=== PATIENT | female | born 1925 | race Caucasian/White ===

== ENCOUNTER → 2017-04-21 | Emergency (ER) | payer MEDICARE, OTHER ==
[~2017-04-21] VITALS: Ht 152.4 cm; Wt 77.1 kg
[~2017-04-21] MED LIST: ACETAMINOPHEN-1 EAC1 PO; AMLODIPINE BESY10 MG PO; AMOX TR-K CLV1 EAC1 PO; COUMADIN3 MG PO; DOCUSATE SODIU100 MG PO; HYDROCHLOROTH12.5 MG PO; ICAPS AREDS FO1 EACH PO; LISINOPRIL20 MG PO; LOVASTATIN20 MG PO; MULTIVITAMINS1 EAC7 PO; NORCO 5-325 TA1 EACH PO; PERCOCET 7.5-31 EACH PO; SENNA LAX8.6 MG PO; ULTRAM50 MG PO; VITAMIN C WIT1000 MG PO; VITAMIN D32000 UNI1 PO; ZOFRAN ODT4 MG PO
== END ==
LOC: ED 16:15
PROC: 2W3CX1Z Immobilization of Right Lower Arm using Splint (ICD-10-PCS; principal; 2017-04-21)
DX: S52.131A Displaced fracture of neck of right radius, initial encounter for closed fracture (principal); S52.001A Unspecified fracture of upper end of right ulna, initial encounter for closed fracture; Z87.891 Personal history of nicotine dependence; Z88.5 Allergy status to narcotic agent; Z79.899 Other long term (current) drug therapy; W19.XXXA Unspecified fall, initial encounter
CPT/HCPCS: 29125; 73080; 99283

== ENCOUNTER 2017-04-26 09:50 | Day surgery (SDC) | payer MEDICARE, OTHER ==
[~2017-04-26] VITALS: Ht 152.4 cm; Wt 72.6 kg
[~2017-04-26 09:50] MED LIST changes: -ACETAMINOPHEN-1 EAC1 PO; -AMOX TR-K CLV1 EAC1 PO; -COUMADIN3 MG PO; -SENNA LAX8.6 MG PO; -ULTRAM50 MG PO
[2017-04-26] MEDS ORDERED: ULTRAM50 MG PO (10:17)
--- NOTE | 2017-04-26 11:11 | NUR ---
C/O NAUSEA. NEW ORDERS RECEIVED.
--- NOTE | 2017-04-26 13:40 | NUR ---
04/26/17 6356 Albaro Zurita SHOWER ATTENDANT AT BEDSIDE ORDERING 12 LEAD AND ASKING FOR NON REBREATHER ON ENTRY TO PACU. BOTH DONE. REPORT RECIEVED. PT REPORTS MILD RIGHT ARM PAIN. NO SURGERY OR ANESTHETIC GIVEN APART FROM THE INTERSCALINE BLOCK DONE IN DS.
--- NOTE | 2017-04-26 13:48 | NUR ---
LE 1020 PT'S OXYGEN SATS 75% ON R HAND. SWITCHED PULSE OX TO L HAND AND SATS INCREASED TO 83%. ENCOURAGED PT TO DEEP BREATH AND BROUGHT SATS UP TO 92% ON RA. TALKED WITH PT AND FAMILY TO CONTINUE DEEP BREATHING.
--- NOTE | 2017-04-26 22:52 | EKG ---
[facility] [address] [place] [address] Signed Sinus tachycardia with premature atrial complexes Left axis deviation Anterior infarct , age undetermined Abnormal ECG No previous ECGs available Confirmed by WALDEMAR MOY MD ([id number]) on 04/26/2017 10:52:33 PM Electronically Signed By: WALDEMAR MOY MD 04/26/17 2252 PATIENT NAME: CLAUDIA LOBATO Electrocardiogram DATE OF : [birth year] PHYSICIAN: WALDEMAR MOY MD REPORT #: [id number] REPORT IS CONFIDENTIAL AND NOT TO BE RELEASED WITHOUT AUTHORIZATION
== END 2017-04-26 14:55 | disposition home or self-care (01) ==
LOC: DS 09:50 → OPS 09:50
PROC: 0PSH04Z Reposition Right Radius with Internal Fixation Device, Open Approach (ICD-10-PCS; principal; 2017-04-26)
PROC: 0PSK04Z Reposition Right Ulna with Internal Fixation Device, Open Approach (ICD-10-PCS; 2017-04-26)
DX: S52.121A Displaced fracture of head of right radius, initial encounter for closed fracture (principal); S52.001A Unspecified fracture of upper end of right ulna, initial encounter for closed fracture; W01.0XXA Fall on same level from slipping, tripping and stumbling without subsequent striking against object, initial encounter; I10 Essential (primary) hypertension; Z85.9 Personal history of malignant neoplasm, unspecified; Z88.8 Allergy status to other drugs, medicaments and biological substances; Z53.9 Procedure and treatment not carried out, unspecified reason
CPT/HCPCS: 64415; 71010; 76942; 93005; 93010; J0735; J2405; J2704; J2795; J7120

== ENCOUNTER 2017-04-26 15:04 | Inpatient (IN) | payer MEDICARE, OTHER ==
[~2017-04-26] VITALS: Ht 152.4 cm; Wt 73.5 kg
[~2017-04-26 15:04] MED LIST changes: +ULTRAM50 MG PO
--- NOTE | 2017-04-26 20:00 | NUR ---
PATIENT ATE HALF A TURKEY SANDWICH, A CUP OF APPLE SAUCE , AND A GLASS OF MILK AND THEN PUT HER CPAP ON BUT SHE DOES NOT LIKE WEARING THE CPAP.
--- NOTE | 2017-04-26 20:30 | NUR ---
PT ARRIVED WITH NURSE BOILER TENDERS SUPERVISOR FROM ER. PATIENT MOVED TO BED IN ROOM 130 AD HOOKED UP TO MOITORS AND ASKED FOR FOOD. SMALL SANDWHICH MEAL AND APPLE SAUCE AND MILK AND THEN PLACED ON CPAP BY RT. FAMILY AT HE BEDSIDE. IV'S PATENT, ASESSMENT COMPLETE.
--- NOTE | 2017-04-26 21:50 | NUR ---
PATIENT WAS BROUGHT UP FROM THE ER AN WAS VERY HUNGRY. SHE ATE 1/3 A TURKEY SANDWICH SO APPLE SAUCE, GRANOLA BAR AND A GLAS OF MILK AND THE WENT O CPAP TO [facility] HER O2 SATS UP.
--- NOTE | 2017-04-26 22:40 | NUR ---
5400 PATIENT WAS GIVEN 500MG OF TYLENOL FOR 5/10 RIGHT ARM PAIN.
--- NOTE | 2017-04-26 23:00 | NUR ---
PT CONFUSED AND PULLING AT TUBES AND REMOVING CPAP MACHINE. UNABLE TO REORIENT PT WITH MULTIPLE ATTEMPTS. MD IN ROOM AND ORDERED A RESTRAINT TO BE PLACED ON L WRIST.
--- NOTE | 2017-04-27 | NUR ---
PATIENT STILL VERY RESTLESS AND PULLING AT HER CPAP AND VS CORDS MAY HAVE TO CA DR. MOY SOON.
--- NOTE | 2017-04-27 00:45 | NUR ---
HAD TO CALL DR. MOY PATIENT HAS BECOME MORE WOUND UP. ORDERED 1 MG HALDOL TO HELP HER REST.
--- NOTE | 2017-04-27 01:15 | NUR ---
1MG IV HALDOL WAS GIVEN AND PATIENT'S AGGITATION HAS BECAOME WORSE. SHE HAS PULED OUT HER LEFT WRIST IV. ONCE THAT IS CLEANED UP I WILL YULY DR. MOY AGAIN.
--- NOTE | 2017-04-27 02:30 | NUR ---
md was updated about continued restlessness after haldol. md ordered seroquel. went to administer medication and pt was finally resting well and not pulling at cpap. will continue to monitor pt for restlessness.
--- NOTE | 2017-04-27 05:11 | NUR ---
JUST CALLED TO LET HIM KNOW PATIENT'S URINE OUTPUT HAD DROPPED OFF OVER THE LST COUPLE HOURS AND A 500CC BOLUS WAS STARTED TO RUN OVER AN HOUR OF D5LR.
--- NOTE | 2017-04-27 08:55 | NUR ---
IV SITE COMPLETELY WRAPPED IN COBAN. COBAN REMOVED, IV SITE INTACT, FLUIDS INFUSING EASILY, SKIN IS SLIGHTLY BRUISED AT INSIRTION SITE.
--- NOTE | 2017-04-27 10:26 | NUR ---
PT UP TO BEDSIDE COMMODE, UNABLE TO HAVE BM. PT LINENS AND GOWN CHANGED, SKIN CARE DONE. PT ASSISTED BACK TO BED. PT IS A ONE PERSON ASSIST UP TO THE COMMODE AND BACK TO BED.
--- NOTE | 2017-04-27 10:37 | NUR ---
PT ON CPAP.
--- NOTE | 2017-04-27 11:52 | NUR ---
PT OFF CPAP AND ON 6L NC.
--- NOTE | 2017-04-27 12:32 | NUR ---
PT IV SITE INTACT, NO REDNESS OR SWELLING NOTED, FLUIDS INFUSING EASILY. PT DENIES PAIN AT IV SITE. PT REPOSITIONED IN BED FOR COMFORT WITH PILLOWS FOR SUPPORT UNDER BOTH ARMS. PT ABLE TO EAT MORE THAN 50% OF LUNCH. FAMILY AT THE BEDSIDE. PT DENIES NAUSEA, AND SOB AT THIS TIME.
--- NOTE | 2017-04-27 12:40 | NUR ---
PT BACK ON CPAP.
--- NOTE | 2017-04-27 15:40 | NUR ---
PT OFF CPAP, PT UP TO THE COMMODE WITH TWO PERSON ASSIST. PT UNABLE TO HAVE BM, THEN BACK TO BED WITH TWO PERSON ASSIST.
--- NOTE | 2017-04-27 18:36 | NUR ---
PT GIVEN PO MAG-CITRATE 150 MG, AND DULCOLAX SUPPOSITORY. CHUCKS PLACED UNDER THE PT.
--- NOTE | 2017-04-27 19:30 | NUR ---
PT SHIFT REPORT RECIVED FROM DAY SHIFT RN. PT FAMILY LEAVING AT THIS TIME. PT UP TO BEDSIDE CAMMODE WITH ASSISTANCE. WILL CONTINUE TO CLOSELY MONITOR.
--- NOTE | 2017-04-27 20:00 | NUR ---
ASSISTED PT BACK TO BED PT TOLERATED WELL. OTHER RN IN TO STAART NEW IV ON PT. ASSESSMENT COMPLETED. PT ABD DISTENDED BOWEL TONES ACTIVE. PT RECIVED MEDICATION ON DAY SHIFT TO HELP PT HAVE A BM. PT UNABLE TO HAVE A BM STILL. WILL CONTINUE TO CLOSELY MONITOR. LUNGS CLEAR AND DIMINISHED IN BASES. WILL TRY AND ENCOURAGE CPAP MACHINE TONIGHT.
--- NOTE | 2017-04-27 21:30 | NUR ---
RT IN TO PLACE CPAP ON PT. EDUCATED PT REGURDING ITS USE AND THE IMPORTANCE OF USING IT THROUGHOUT THE NIGHT. PT IS AGREEABLE TO PLAN.
--- NOTE | 2017-04-27 21:50 | NUR ---
PT YELLING OUT. ENTERED ROOM AND PT STATED "WHAT IS THIS ON MY MOUTH, ITS COVERING MY MOUTH". PT IS REFERING TO THE CPAP MACHINE. REORIENTED PT TO EQUIPMENT AND ITS PURPOSE. PT IS AGREEABLE TO WEARING IT.
--- NOTE | 2017-04-27 21:57 | NUR ---
PT RESTING IN BED. MOVED PT FROM 130 TO 128 D/T INTERMITENT CONFUSION, HX DEMENTIA, AND RECENT FALL AT HOME. PT BED ALARM ON AT THIS TIME. WILL CONTINUE TO CLOSELY MONITOR.
--- NOTE | 2017-04-27 22:15 | NUR ---
PT YELLING OUT AGAIN. REOEIRNTED TO EQUIPMENT AND SITUATION. WILL COTNINUE TO MONITOR.
--- NOTE | 2017-04-27 22:35 | NUR ---
PT YEKLLING OUT AGAIN. REMOVED MASK TO GIVE PT A BREAK AND TAKE MEDICATION. PLACED NC ON PATIENT AT 6L NC. WILL CONTINUE TO MONITOR AND READRESS CPAP MACHINE AT ANOTHER TIME.
--- NOTE | 2017-04-27 23:00 | NUR ---
PT YELLING OUT AGAIN. UNSURE WHERE SHE IS AND STATES "ISNT MEGAN HERE" "WHERE ARE MY KIDS". REORIENTED PT HER FAMILY IS MOST LIKELY HOME SLEEPING BECAUSE IT IS THE MIDDLE OF THE NIGHT. PT PULLING ON CORDS. REEDUCATED NOT TO PULL ON TUBES OR CORDS. REDUCATED PT REGUARDING THEIR PURPOSE. GAVE PT PRN SEROQUEL FOR AGITATION/RESTLESSNESS. BED ALARM ON. CALL LIGHT IN HAND. WILL CONTINUE TO CLOSELY MONITOR.
--- NOTE | 2017-04-28 00:15 | NUR ---
PT DOES NOT WANT CPAP ON AT THIS TIME. PT STATES "IT PANICS ME". EDUCATED ON EQUIPMENTS PURPOSE, BUT PT DOES NOT WANT TO USE IT AT THIS TIME. WILL CONTINUE TO MONITOR.
--- NOTE | 2017-04-28 01:00 | NUR ---
PT RESTING WELL AT THIS TIME. BYNUM CHECKED PT HAS GOOD URINE OUTPUT. PT REMAINS ON NC AT THIS TIME D/T DENIAL OF CPAP MACHINE. WILL CONTINUE TO MONITOR.
--- NOTE | 2017-04-28 03:00 | NUR ---
PT RESTING IN BED. PT STILL WITHOUT A BOWL MOVEMENT WITH RECIVING MEDICATION PRIOR IN THE NIGHT. CALL LIGHT IN HAND. BED IN LOWEST POSITION. BED ALARM ON. WILL CONTINUE TO CLOSELY MONITOR.
--- NOTE | 2017-04-28 05:20 | NUR ---
PT RESTING IN BED. LAB IN FOR MORNIGN LABS. PT IS AGREEABLE TO WEARING CPAP AT THIS TIME. WILL CONTINUE TO REORIENT AND EDUCATED REGURDING MEDICAL EQUIPMENT AND SITUATION NEEDED.
--- NOTE | 2017-04-28 06:13 | NUR ---
PT AGREEABLE TO TRYING CPAP AGAIN. PLACED PT ON CPAP AT THIS TIME. WILL CONTINUE TO MONITOR AND REORIENT NEEDED.
--- NOTE | 2017-04-28 06:16 | NUR ---
IN TO DO I/O. CHECKED PT TO SEE IF ANY INCONTINENT BM. ODOR NOTED. TURNED PT AND CLEANED PT. NEW JUSTYNA PADS PLACED. PT HAD MEDIUM LOOSE BROWN STOOL. WILL CONTINUE TO MONITOR.
--- NOTE | 2017-04-28 08:20 | NUR ---
REPORT RECEIVED FROM MERCEDES ARAYA. PATIENT RESTING UPON INITIAL ASSESSMENT IN BED. PT EASILY AWAKENS TO VOICE. PT'S SON BROOKLYN IN ROOM AND ATTENTIVE TO PATIENT. PATIENT DOES NOT APPEAR SHORT OF BREATH AND DENIES FEELING SHORT OF BREATH. PT IS CURRENTLY ON 5 L NC AND HAS SP02 OF 96%. PT WILL BE ATTEMPTED TO WEAN DOWN O2 TOLERATED. PATIENT HAVE D5 LR INFUSING AT 100 ML/HR INTO A 20 G ON LEFT WRIST. PT NOW EATING FRESH FRUIT, APPLE SAUCE AND HOT COCOA. WARM BLANKET GIVEN TO PATIENT. PT HAS BYNUM CATHETER DRAINING CLEAR YELLOW URINE. PULSES HARD TO PALPATE IN FEET AND DOPPLER USED. PT DENIES FURTHER NEEDS AT THIS TIME. CONTINUE TO MONITOR CLOSELY.
--- NOTE | 2017-04-28 09:00 | NUR ---
OXYGEN TITRATED DOWN TO 3 L AT THIS TIME. PATIENT UP IN CHAIR AFTER SITTING ON BEDSIDE COMMODE AND HAVING A BM. PATIENT HAVING LIQUID STOOL, BUT THEN STATES THAT SHE "FEELS SOMETHING DOWN THERE STILL." PALPABLE HARD STOOL FELT AT RECTUM OPENING AND EASILY ABLE TO HELP PATIENT REMOVE THIS HARD STOOL. PATIENT WANTING TO GO BACK INTO BED BUT ENCOURAGED TO SIT UP IN CHAIR FOR AT LEAST AN HOUR THIS AM. PT GIVEN TYLENOL FOR PAIN. PT'S RIGHT ARM POSITIONED WITH PILLOW. PT'S SON BROOKLYN BACK IN ROOM NOW AT THIS TIME. CORE TEMP ON BYNUM CATHETER 100.0. CONTINUE TO MONITOR. CALL LIGHT WITHIN REACH.
--- NOTE | 2017-04-28 10:14 | NUR ---
DR. MOY IN ROOM EVALUATING PATIENT. PATIENT CONTINUES TO SIT IN CHAIR AT THIS TIME AND HAS BEEN DOZING OFF THIS AM WITH HER SON SITTING NEXT TO HER. ORDER REC'D TO D/C BYNUM, INCREASE USE OF IS, AND INCREASE ACTIVITY TOLERATED. I/O COMPLETE AT THIS TIME. PATIENT ALSO GOING TO TRANSFER TO MEDICAL FLOOR TODAY. PATIENT'S 02 CURRENTLY AT 95% ON 3L, PATIENT TURNED DOWN TO 2 L. WILL CONTINUE TO MONITOR.
--- NOTE | 2017-04-28 11:38 | NUR ---
PATIENT CONTINUES TO REST IN CHAIR AT THIS TIME. PT OFF MONITOR. ASSESSMENT AND VITALS COMPLETE. K PHOS INFUSING NOW AT 63 ML/HR. PATIENT TO BE SALINE LOCKED AFTER THIS INFUSION. PT REMAINS ON 2 L NC AND IS TOLERATING THIS WELL WITH AN SP02 OF 92% CURRENTLY. CONTINUE TO MONITOR.
--- NOTE | 2017-04-28 12:00 | NUR ---
HANDOFF REPORT RECEIVED FROM CCU RN JUAN VIA TELEPHONE.
--- NOTE | 2017-04-28 12:18 | NUR ---
REPORT GIVEN TO MERCEDES JARA ON MED SURG. PATIENT TO BE TRANSFERRED TO MED/SURG IN CHAIR.
--- NOTE | 2017-04-28 12:40 | NUR ---
PT ARRIVED TO FLOOR VIA CHAIR. ORIENTED TO ROOM AND CALL LIGHT. FRESH JUICE GIVEN. DENIED FURTHER NEEDS. CALL LIGHT WITHIN REACH.
--- NOTE | 2017-04-28 13:00 | NUR ---
GAVE PT 650MG TYLENOL PO FOR PAIN IN RIGHT ARM.
--- NOTE | 2017-04-28 13:20 | NUR ---
PT ASSESSMENT COMPLETE. PT SPO2 93% ON SL NC. PT UP IN CHAIR. CRACKLES NOTED BILATERALLY IN LUNG BASES. ASSISTED PT WITH FIRE PREVENTION SPECIALIST TO TRANSFER TO BEDSIDE COMMODE. PT LYNETTE WELL, NOT STEADY ON FEET. PT HAD SMALL FORMED BM, VOID. IVF INFUSING WNL. PT STATES PAIN IS 4/10 IN RIGHT ARM, PRN TYLENOL WAS ADMINISTERED TO PT. RIGHT ARM IN ORTHO GLASS AND WRAPPED IN TUSHAR BANDAGE. PT GIVEN CALL LIGHT, NO ADDITIONAL REQUESTS AT THIS TIME. SON BROOKLYN IN ROOM.
--- NOTE | 2017-04-28 15:15 | NUR ---
REASSESSED PT'S PAIN. PT SITTING IN CHAIR, RATES PAIN IN RIGHT WRIST 5/10. DR. MOY NOTIFIED THAT TYLENOL IS NOT MANAGING PAIN EFFECTIVELY, FAMILY REQUESTING ADDITIONAL PAIN MEDICATION. PT GIVEN WARM BLANKET. COFFEE BROUGHT TO VISITORS. RIGHT ARM IS ELEVATED ON PILLOW. IVF INFUSING. SPO2 91% ON 2L NC. PT HAS CALL LIGHT.
--- NOTE | 2017-04-28 15:51 | NUR ---
PHYSICAL THERAPY IN ROOM WORKING WITH PT. RECOMMENDATION FOR CANE AND SBA. PT BACK TO BED, SCD'S IN PLACE. PT RIGHT ARM ELEVATED ON PILLOW. PT HAS CALL LIGHT.
--- NOTE | 2017-04-28 16:42 | NUR ---
PT IN BED TOOK HER TO THE BATHROOM.
--- NOTE | 2017-04-28 18:30 | NUR ---
ASSISTED PT TO COMMODE WITH SBA, PT HAD FORMED, SOFT BM WITH UNMEASURED VOID. PT LYNETTE WELL, NOT STEADY ON FEET. PT ATTENDS CHANGED. PT BACK TO BED 92% ON 2L NC. PT COMPLAINS OF 5/10 PAIN IN RIGHT ARM, ADMINISTERED 650 MG ACETAMINOPHEN PRN. SCDS IN PLACE. IV ANTIBIOTIC COMPLETE AT THIS TIME, IV SALINE LOCKED, WNL. PT'S LUNGS DIMINISHED IN BASES BILATERALLY, CRACKLES NOTED IN LEFT LOWER LOBE. PT HAS NO ADDITIONAL REQUESTS, CALL LIGHT GIVEN TO PT.
--- NOTE | 2017-04-28 18:41 | NUR ---
PT CONFUSED, REPEATING SELF AND ASKING ABOUT WATCH ON WRIST THAT IS NOT THERE. WHEN ASKED ABOUT TIME DATE LOCATION, ANSWERED ALL QUESTIONS CORRECTLY.
--- NOTE | 2017-04-28 19:28 | NUR ---
PT AMBULATED TO BED SIDE COMMODE WITH ASSITANCE. REQUIRED ASSISTANCE CLEANING SELF. RETURNED TO BED WITH SCD'S ON, O2 CONTINIOUS AT 2L NC. RIGHT ARM IN SLING WITH PILLOW ELEVATING. 5/10 PAIN FOR SITE AND GIVEN PO TYLENOL.
--- NOTE | 2017-04-28 20:00 | NUR ---
RECEIVED REPORT AT 1900. FOUND PT IN BED TALKING WITH FAMILY AT BEDSIDE. PT WAS COMPLAINING OF PAIN IN HER RIGHT WRIST. MD MOY WAS AT RN STATION WRITING A NEW ORDER FOR PRN PAIN MEDICATION. I TOLD HER I WOULD BRING HER PRN PAIN MEDICATION PEGGY.
--- NOTE | 2017-04-28 21:27 | NUR ---
ROUNDED ON PATIENT CHARGE. ALL QUESTIONS ANSWERED. NO CONCERNS OR COMPLAINTS AT THIS TIME. CALL LIGHT IN REACH.
--- NOTE | 2017-04-28 22:00 | NUR ---
V/S ARE WDL, PAIN IS WELL CONTROLLED WITH PRN PAIN MEDS AVAILABLE. ALL HER RIGHT LOBES ARE COARSE AND SO IS HER LLL. MYNOR IS DIMINISHED. SPUTUM SAMPLE IS STILL NEEDED, HOWEVER PT IS VERY FORGETFUL AND I HAD TO REMIND HER ABOUT X4 WHAT THE SPUTUM CUP WAS FOR. PT HAS HX OF DEMENTIA. NO PERIPHERAL EDEMA NOTED, ALL ABD QUADRANTS HAVE ACTIVE BOWEL TONES.
--- NOTE | 2017-04-29 00:45 | NUR ---
PT IS AWAKE IN BED EATING JELLO. PT IS CONFUSED ABOUT CURRENT TIME AND KEEPS ASKING WHAT TIME IT IS. PT IS TRYING TO SLEEP AT THIS TIME.
--- NOTE | 2017-04-29 02:55 | NUR ---
PT IS STILL AWAKE IN BED, ANOTHER TYLENOL#3 WAS GIVEN. LAUNDRY OPERATOR WASH ROOM AND I ASSISTED PT TO BSC, PT VOIDED AND HAD A BM. BROUGHT PT A HOT CHOCOLATE. PT NOW IS BACK IN BED RESTING
--- NOTE | 2017-04-29 03:45 | NUR ---
CHECKED ON PT AGAIN. PT COMPLAINED ABOUT TUSHAR WRAP BEING TOO TIGHT. EDEMA IN RIGHT ARM IS ABOUT +3 NON-PITTING AND TUSHAR WRAP WAS CUTTING INTO HER SKIN. TUSHAR WRAP WAS REMOVED AND RE-APPLIED. BRACHIAL PULSE IS +2, FINGERS ARE WARM TO TOUCH. ICE PACK WAS PUT ON RIGHT ARM. I WILL CONTINUE TO MONITOR.
--- NOTE | 2017-04-29 06:22 | NUR ---
PT SEEMS WELL CONTROLLES WITH PRN PAIN MEDS AVAILABLE, V/S ARE WDL, TUSHAR WRAP ON RIGHT ARM WAS CUTTING INTO PT ARM. I RE-WRAPPED HER ARM THIS MORNING. PT OVERALL IS STILL VERY WEAK BUT IS IN GOOD SPIRITS, DURING FIRST ASSESSMENT, THE ONLY CLEAR LOBE WAS THE MYNOR. ALL OTHER LOBES HAD CRACKLES. DURING SECOND ASSESSMENT ALL LOBES WERE CLEAR BUT DIMINISHED. PT MAY NOT HAVE TAKEN VERY DEEP BREATHS. RIGHT ARM EDEMA IS +3, FINGERS ARE WARM TO TOUCH AND BRACHIAL PULSE IS +2. PT IS VERY FORGETFUL OVERALL. SPUTUM WAS COLLECTED AND SENT TO LAB.
--- NOTE | 2017-04-29 08:00 | NUR ---
PT WAS ON COMMODE CALLED B/C SHE WAS DONE. PT WAS THEN TRANSFERED TO THE CHAIR VIA [address] [place] [address] ASSIST. PT'S HANDS AND FACE WERE CLEAND WITH A WARM WASH CLOTH PT NEEDED HELP DUE TO HER INJURED ARM. LINENS WERE CHANGED.
--- NOTE | 2017-04-29 09:06 | NUR ---
WAREHOUSE PICKER JING WILL BE HANDLING ALL PT CARE FROM NOW UNTIL 1300. I WILL STILL CHECK ON PT Q2
--- NOTE | 2017-04-29 09:45 | NUR ---
TALKED WITH PT SON BROOKLYN, HE STATED THAT HE WOULD LIKE ME TO MEET WITH HIM AND HIS AFTER SHE GETS OFF WORK TO TALK ABOUT HIS MOTHER GOING TO [facility] THAN [place]. TOLD HIM I WOULD GLADLY MEET WITH TOLD HIM TO JUST TO LET THE NURSES KNOW AND I WILL COME VISIT WITH THEM.
--- NOTE | 2017-04-29 10:00 | NUR ---
PATIENT UP TO BATHROOM, APPEARS STEADY ON FEET, AMBULATING INTO BATHROOM. PAIN WELL CONTROLLED.
--- NOTE | 2017-04-29 10:28 | NUR ---
PT WALKED WITH PHYSICAL THERAPY FROM ROOM TO HALLWAY. RESTED IN WHEELCHAIR PENITENTIARY. C/O LIGHTHEADEDNESS AND DIZZINESS. O2 95% IN WHEELCHAIR. WALKED FROM WHEELCHAIR BACK TO ROOM AND RETURNED TO BED, LAYING SUPINE. SCD'S RESTARTED. O2 CONTINUED 2L. RIGHT ARM PAIN 6/10. GIVEN ICE PACK AND ELEVATED ARM.
--- NOTE | 2017-04-29 10:38 | NUR ---
PT LEGS DRY AND FLAKY SKIN. REMOVED SCD'S TO APPLY LOTION AND REAPPLIED SCD'S. PT ENCOURAGED TO REPORT ANY LEG ACHES OR TENDERNESS AND TO AVOID MASSAGING LOTION INTO LEGS BECAUSE OF DVT RISK. NO PRESSURE SORES NOTED ON COCCYX WHEN AMBULATED TO BATHROOM. CONTINUED DISCOLORATION ON RIGHT INJURED ARM. PT C/O NC ON EARS. CHECKED FOR SORES AND NOTED NONE. REPOSITIONED O2 CORD AND ENCOURAGED PT TO NOTIFY NURSE IF CONTINUES TO IRRITATE.
--- NOTE | 2017-04-29 11:00 | NUR ---
ASSISTED BEHAVIORAL MEDICAL DIRECTOR JING TO TRANSFER PT TO COMMODE AND THEN TO CHAIR. PT WAS ALSO GIVEN A COMPLETE BED BATH WELL A SHAMPOO CAP. PT IS NOW SITTING U P IN CHAIR WITH CALL LIGHT IN REACH.
--- NOTE | 2017-04-29 11:00 | NUR ---
PT OFF O2 FOR 10 MINUTES DURING BED BATH. AT FIVE MINUTES, PT AT 90% O2 MEASURED BY CPAP MONITOR ON RIGHT HAND/FINGER. AT TEN MINUTES, PT AT 80%. NO IMMINENT SIGNS OF RESPIRATORY DISTRESS. PT SITTING UP ALERT AND ORIENTED AND TALKING. PT EXPRESSED FEELING MUCH BETTER AFTER BATH. NC REPLACED AT 2L AND PT RETURNED TO 93%.
--- NOTE | 2017-04-29 11:38 | NUR ---
PT ASSISTED IN AMBULATING TO BEDSIDE COMMODE. ASSISTANCE CLEANING. RETURNED TO BED FOR BED BATH, SHAMPOO, LOTION. GIVEN CLEAN GOWN. AMULATED TO CHAIR. RIGHT ARM ELEVATED IN SLING AND BY PILLOW. SCD'S APPLIED. VISITORS IN ROOM.
--- NOTE | 2017-04-29 12:47 | NUR ---
VISITED WITH PT'S SON IN [place]. HE INQUIRED REGARDING A MTG WITH ADRIANA [employer]ARLY THIS AFTERNOON. I WAS ABLE TO CONNECT WITH HER AND THEY MADE ARRANGEMENTS. HE ALSO CONFIDED IN ME THAT HE IS GETTING STATIC FROM HIS WORK, THREATENING TO FIRE HIM IF HE DOESN'T GET BACK TO WORK. HIS MOTHERS CONDITION HAS TAKEN SOME UNEXPECTED TURNS, AND HE IS STAYING BY HER SIDE-HONORING HIS MOTHER. I WILL CONTINUE TO FOLLOW NEEDED
--- NOTE | 2017-04-29 12:56 | NUR ---
PT HANDOFF TO PRIMARY NURSE. PT SITTING IN CHAIR WITH CALL LIGHT IN REACH AND WATER AT BEDSIDE. PT INSTRUCTED TO CALL NURSE IF AMBULATING OR FOR ANY NEEDS. RIGHT ARM IS IN SLING AND ELEVATED BY PILLOW. IV D/C'ED. NO C/O INCREASED PAIN.
--- NOTE | 2017-04-29 13:30 | NUR ---
TALKED WITH PT SON BROOKLYN AND HIS AND THEY REALLY WOULD LIKE PT TO GO TO AN ADULT FOSTER HOME BUT AT THIS POINT DR MOY SAID SHE NEEDS TO GO TO A SNF. DUE TO WEATHER (WINTER) IN FUTURE THEY WOULD LIKE HER TO GO TO [facility] IN [place]. TOLD THEM I WOULD FAX CHART NOTES THERE AND TALK WITH TOMMIE.
--- NOTE | 2017-04-29 14:05 | NUR ---
PT IS SITTING IN CHAIR WITH FEET ELEVATED AND CALL LIGHT IN REACH. PT ASKED FOR MORE ICE WATER
--- NOTE | 2017-04-29 16:04 | NUR ---
CALLED TOMMIE IN [place] AND FAXED CHART NOTES INCLUDING ER NOTES, H AND P, PROG NOTES, IMAGING, MEDS, LABS, AND PT EVAL AND NOTES. TALKED WITH [place] AND SHE WILL TALK WITH ME ON TUESDAY.
--- NOTE | 2017-04-29 18:37 | NUR ---
PT IS SITTING UP IN BED VISITING WITH FAMILY. CALL LIGHT IN REACH. PT DID NOT NEED ANYTHING ELSE AT THE MOMENT
--- NOTE | 2017-04-29 20:00 | NUR ---
RECEIVED REPORT AT 1900. FOUND PT IN BED AWAKE AND IN PAIN. PT WAS ALSO CONFUSED TO PLACE, DATE AND SITUATION AT THAT TIME.
--- NOTE | 2017-04-29 22:00 | NUR ---
V/S ARE WDL, ALL LOBES ARE CLEAR, PT AT THIS TIME IS DISORIENTED TO PLACE AND CIRCUMSTANCE. EDEMA ON RIGHT ARM IS +3, SPLINT AND DRESSING ARE INTACT, RADIAL PULSE IS +2 FINGERS ARE WARM TO TOUCH, PT DENIES NUMBNESS AND TINGLING. NORMAL BOWEL TONES ARE PRESENT IN ALL QUADRANTS. OVERALL PT SEEMS STRONGER PHYSICALLY. HOWEVER PT SEEMS MORE CONFUSED MENTALLY. PAIN SEEMS WELL CONTROLLED WITH PRN TYLENOL#3 AVAILABLE. SO FAR PT HAS RECEIVED 1 TAB OF TYLENOL #3.
--- NOTE | 2017-04-30 00:23 | NUR ---
PT IS SLEEPING NOW.
--- NOTE | 2017-04-30 02:21 | NUR ---
SECOND ASSESSMENT THIS SHIFT HAS NO CHANGES FROM THE FIRST. 1 TAB TYLENOL #3 WAS GIVEN, I ASSISTED PT TO BSC, PT HAD A LARGE INCONNTINENT VOID AND 300ML MEASURED. PT NOW IS BACK IN BED. I WAS ABLE TO CONVINCE PT TO USE HER C-PAP. RT WAS CALLED.
--- NOTE | 2017-04-30 03:12 | NUR ---
PT IS SLEEPING WITH C-PAP ON.
--- NOTE | 2017-04-30 03:25 | NUR ---
PT JUST TOOK HER C-PAP OFF AND IS REFUSING IT AT THIS TIME. PT NOW IS BACK ON NC 2L OF O2.
--- NOTE | 2017-04-30 04:20 | NUR ---
PT IS SLEEPING AT THIS TIME.
--- NOTE | 2017-04-30 05:22 | NUR ---
SO FAR PT HAS RECEIVED PRN TYLENOL #3 X2. PT REFUSED C-PAP AT START OF SHIFT. SHE ONLY HAD IT ON FOR ABOUT AN HOUR OR SO OVERALL. NC IN PLACE. RUE IS ELEVATED WITH ICE PACK PRESENT. EDEMA ON RUE IS +2 NON-PITTING. BRACHIAL PULSE IS +2 AND FINGERS ARE WARM TO TOUCH. ALL LOBES HAVE REMAINED CLEAR THIS SHIFT. URINE OUTPUT HAS BEEN ADEQUATE OVERALL. PT HAS REMAINED DISORIENTED TO PLACE AND SITUATION. PT OVERALL IS COOPERATIVE. NO NEW ISSUES NOTED SO FAR.
--- NOTE | 2017-04-30 09:00 | NUR ---
PATIENT UP TO BATHROOM, COMPLAINS OF NAUSEA AND APPEARS NERVOUS TO START HAVING EMESIS. ADMINISTERED PO ZOFRAN AND REPOSITIONED PATIENT UP IN CHAIR FOR BREAKFAST. NAUSEA IMPROVED IMMEDIATLEY. LUNG SOUNDS DIMINISHED IN BASES WITH SOME FINE CRACKLES NOTED. RT IN ROOM TO ASSIST WITH BREATHING EXERCISES VIA IS AND OCCAPELLA. DAUGHTER IN THE ROOM WITH FAMILY. PROVIDED PATIENT WITH WARM BLANKET AND HOT COCOA.
--- NOTE | 2017-04-30 11:30 | NUR ---
PATIENT UP SHOWER, CAREFULLY UNWRAPPED TUSHAR WRAP TO CASTING, PATIENT TOLERATED WELL. PATIENT ABLE TO ASSIST WITH SHOWERING, NURSE AND ASSEMBLER ADJUSTER ASSISTED PATIENT. STATES " THIS FEELS AMAZING, I AM FEELING SO MUCH BETTER" CONTINUES TO BE ON 2L NC. FULL BODY ASSESMENT DONE, SKIN INTACT. PATIENT AAOX3.
--- NOTE | 2017-04-30 14:54 | NUR ---
PATIENT HAS BEEN UP IN RECLINE, PAIN WELL CONTROLLED WITH TYLENOL 3, RATES PAIN 3/10 ON PAIN SCALE WITH MOVEMENT. AMBULATED IN HALLS WITH PHYSICAL THERAPY, APPEARS STEADY WITH WALKER. APPEARS TO BE PICKING UP FEET WHEN AMBULATING. VS STABLE.
--- NOTE | 2017-04-30 15:16 | NUR ---
PT WALKED FROM THE BED TO THE BATHROOM, PT VOIDED, THEN PT WALKED TO THE CHAIR AND IS NOW SITTING UP SAFELY WITH CALL LIGHT IN REACH
--- NOTE | 2017-04-30 17:46 | NUR ---
PATIENT UP THROUGHOUT DAY TO BATHROOM AND AMBULATING IN HALLS. PAIN WELL CONTROLLED WITH TYLENOL3. SHOWERED TODAY. DR. MOY ROUNDED ON PATIENT AND NOTED IMPROVMENT WITH AIRWAY. AAOX3.
--- NOTE | 2017-04-30 19:45 | NUR ---
BEDSIDE SHIFT REPORT RECEIVED FROM MERCEDES GALLARDO. PT RESTING IN BED. 2L O2 VIA NC IN PLACE. NO IV. DENIES NEEDS AT THIS TIME.
--- NOTE | 2017-04-30 20:00 | NUR ---
ASSESSMENT COMPLETE. ALERT/ORIENTED. REPORTS THAT PAIN HAS IMPROVED TO 2/10 AND STATES THAT IT IS TOLERABLE AT THIS TIME. LUNGS CLEAR, 2L O2 VIA NC IN PLACE. HR REGULAR. BOWEL TONES ACTIVE, DENIES NAUSEA. RIGHT ARM IN SLING, CMS INTACT, EXTREMITIES WARM, ABLE TO WIGGLE FINGERS. NO IV ACCESS. R.T. IN TO ASSESS PT, INSTRUCT BREATHING EXERCISES, AND PLACE PT ON CPAP. PT TIRED, DENIES FURTHER REQUESTS.
--- NOTE | 2017-04-30 21:50 | NUR ---
PT CALLED STATING SHE NEEDED TO USE THE BATHROOM. CLINICAL EVALUATOR IN TO ASSIST PT TO BATHROOM AND BACK TO BED.
--- NOTE | 2017-04-30 22:48 | NUR ---
PT'S CPAP WAS ALARMING, WENT IN TO PT'S ROOM AND SHE TOLD ME TO "TURN THAT OFF." PLACED HER BACK ON 2L O2 VIA NC. PT STATES SHE IS COLD. BROUGHT HER WARM BLANKETS AND INCREASED HER ROOM TEMPERATURE. SHE DENIES FURTHER REQUESTS AT THIS TIME.
--- NOTE | 2017-05-01 01:00 | NUR ---
PT UP TO BSC WITH 1-PA, VOIDED AND THEN RETURNED TO BED. NO FURTHER REQUESTS.
--- NOTE | 2017-05-01 02:15 | NUR ---
PT UP TO BSC WITH 1-PA TO VOID AND THEN RETURNED TO BED. ASSESSMENT COMPLETED. PT REPORTS 8/10 PAIN IN RIGHT ARM, TYLENOL #3 ADMINISTERED. NO OTHER CHANGES FROM PREVIOUS ASSESSMENT. PT DENIES FURTHER REQUESTS AT THIS TIME. WILL CONTINEU TO MONITOR.
--- NOTE | 2017-05-01 03:50 | NUR ---
ASSISTED PATIENT TO THE BSC, 1PA. PATIENT WAS DIAPHORETIC, NEW GOWN PROVIDED. PATIENT BACK TO BED. CALL LIGHT IN REACH.
--- NOTE | 2017-05-01 03:52 | NUR ---
PT UP TO BSC WITH SBA, VOIDED AND THEN RETURNED TO BED. NEW GOWN PROVIDED BECAUSE, PT WAS SWEATY. PT STATES THAT HER ARM FEELS BETTER SINCE RECEIVING PAIN MEDICATION, RATES IT NOW 3/10. SHE DENIES NEEDS AT THIS TIME, CALL LIGHT IS WITHIN REACH.
--- NOTE | 2017-05-01 05:31 | NUR ---
PT CALLED AND NEEDED TO USE THE BATHROOM. UP TO BSC WITH 1-PA. VOIDED AND HAD SMALL BM AND THEN RETURNED TO BED. PT REQUESTS PAIN MEDICATION, BUT DISCUSSED WITH HER THAT IT ISN'T QUITE TIME YET, PROVIDED HER WITH ICE PACK FOR NOW.
--- NOTE | 2017-05-01 05:36 | NUR ---
PT SLEPT WELL THROUGHOUT SHIFT. ORIENTED, FORGETFUL AT TIMES. 2L O2 VIA NC, ONLY TOLERATED CPAP FOR A COUPLE HOURS, LUNGS SOUND CLEAR. 1-PA TO BSC, STEADY ON FEET. NO IV ACCESS. LEFT ARM IN SPINT AND SLING, NON-PITTING EDEMA PRESENT. PRN TYLENOL #3 AND ICE PACKS PROVIDED FOR ARM PAIN, WORKING WELL FOR PT. CMS INTACT, EXTREMITIES WARM.
--- NOTE | 2017-05-01 06:54 | NUR ---
PT GIVEN PRN TYLENOL #3 FOR 6/10 PAIN IN RIGHT ARM. DENIES FURTHER REQUESTS.
--- NOTE | 2017-05-01 07:10 | NUR ---
PATIENT UP TO RECLINER THIS MORNING, PROVIDED PATIENT WITH HOT COCOA AND WARM CLOTH FOR FACE. LUNG SOUNDS CLEAR THROUHOUG, 2L NC 94%. COMPLAINS OF SOME PAIN WITH MOVEMENT, PAIN MEDICATION JUST ADMINISTERED. STEADY ON FEET WITH CANE. FRIEND AT BEDSIDE. FULL BODY ASSESMENT DONE.
--- NOTE | 2017-05-01 08:23 | NUR ---
PATIENT IN CHAIR WITH BREAKFAST. WHITEBOARD UPDATED, ROOM TIDIED. PATIENT STATES SHE DOES NOT NEED ANYTHING SHE IS JUST TRYING TO EAT HER BREAKFAST. WILL RECHECK AFTER BREAKFAST.
--- NOTE | 2017-05-01 09:07 | NUR ---
PATIENT UP TO BATHROOM, VOIDING WELL. STEADY ON FEET WITH CANE. NO SOB WITH EXERTION. PATIENT WENT BACK TO BED AFTER TOILETING, ENCOURAGED PATIENT TO BE UP IN CHAIR. POC FOR DAY IS TO SHOWER THIS MORNING. PATIENT STATES " THAT WOULD FEEL GOOD. CHANGED LINEN. CALL LIGHT WITHIN REACH.
--- NOTE | 2017-05-01 09:09 | NUR ---
PATIENT USING IS WELL AND OCCAPELLA. APPEARS TO BE TAKING DEEP BREATHS. RT REMOVED CPAP FROM ROOM, SECONDARY TO PATIENT REFUSING AT NIGHT.
--- NOTE | 2017-05-01 09:15 | NUR ---
MADE PATIENT A NEW ICE PACK FOR ARM. PATIENT IS REQUESTING A BEDBATH CURRENTLY, WILL COMPLETE IT AFTER VITAL SIGNS ARE FINISHED.
--- NOTE | 2017-05-01 10:30 | NUR ---
PATIENT TO SHOWER, TOLERATED WELL. STATES " MY ARM IS SORE, BUT NOT TOO BAD". NOTED BRUSING AND SWELLING. STRONG RADIAL PULSE, EXTREMITY WARM TO TOUCH. SKIN INTACT. PATIENT ABLE TO WASH WITH LEFT HAND, AND NEEDS MODERATE ASSIST WITH OTHER HARD TO REACH PLACES. APPEARS MOTIVATED TO MOVE STATES " I AM NOT SHUFFLING MY FEET ANYMORE". PROVIDED PATIENT WARM BLANKETS.
--- NOTE | 2017-05-01 11:22 | NUR ---
NURSE IN ROOM. ASSISTED WITH DRYING PATIENT AFTER SHOWER AND RE-WRAPPING ARM. CLEANED UP BATHROOM AFTERWARDS WELL.
--- NOTE | 2017-05-01 13:20 | NUR ---
PATIENT IS SITTING UP IN CHAIR DOING WELL, STATES THAT SHE IS WAITING FOR HER FAMILY TO COME BY. REFILLED ICE WATER, DOES NOT NEED ANYTHING ELSE AT THIS TIME.
[2017-05-01] MEDS ORDERED: COUMADIN3 MG PO (13:55)
[2017-05-01] MEDS ORDERED: AMOX TR-K CLV1 EAC1 PO (13:55)
[2017-05-01] MEDS ORDERED: SENNA LAX8.6 MG PO (13:56)
[2017-05-01] MEDS ORDERED: ACETAMINOPHEN-1 EAC1 PO (13:57)
--- NOTE | 2017-05-01 16:23 | NUR ---
AMBULATED IN HALLS TOLERATED AMBULATING 4 FEET PASSED NURSES STATION FROM ROOM. PATIENT STATED " THIS IS ENOUGH FOR ME". SON STATED " SHE NORMALLY WALKS 3X MUCH".
--- NOTE | 2017-05-01 18:29 | NUR ---
PATIENT UP THROUGHOUT DAY, SHOWERED. LUNG SOUNDS CONTINUE TO IMPROVE, TITRATE TO 1L NC SATURATION 90%. PATIENT AMBULATED TO NURSING STATION TWICE. PAIN WELL CONTROLLED WITH TYLENOL 3. PATIENT AAOX3. FAMILY IN ROOM VS STABLE.
--- NOTE | 2017-05-01 21:00 | NUR ---
PT LAYING IN BED. LIGHTS AND TV OFF IN ROOM. PT APPEARED TO BE SLEEPING WHEN ENTERING ROOM. WOKE EASILY TO NURSES VOICE. PT REPORTED THINKING IT WAS MORNING, RE-ORIENTED TO TIME EASILY. PT DENIES PAIN AT THIS TIME, STATES "I HAVE ZERO PAIN." BRACE IN PLACE ON RIGHT ARM AND IT IS ELEVATED ON A PILLOW. PT DENIES FURTHER NEEDS AT THIS TIME.
--- NOTE | 2017-05-01 23:39 | NUR ---
PT APPEARS TO BE SLEEPING. RR WNL AND UNLABORED.
--- NOTE | 2017-05-02 03:41 | NUR ---
PT CALLED OUT TO NURSES STATION, RE-ORIENTED EASILY. ASSISTED PT UP TO BATHROOM TO VOID. NEW ATTENDS IN PLACE. STRAIGHTENED UP BED. PT BACK IN BED. GAVE HOT CHOCOLATE PER PT REQUEST. CALL LIGHT IN REACH. NO FURTHER NEEDS.
--- NOTE | 2017-05-02 06:28 | NUR ---
pt sitting up in chair. right arm elevated on pillow with fresh ice pack on it. gave fresh ice water. pt complained of 5/10 pain in right arm, gave tylenol III for pain. pt has call light. no further needs.
--- NOTE | 2017-05-02 07:31 | NUR ---
BEDSIDE REPORT FROM SHYANNE LONG. PT SITTING UP IN RECLINER VISITING WITH GUEST IN ROOM. REPORTS HER PAIN IS WELL MANAGED AT THIS TIME. INQUIRED TO WHEN BREAKFAST WOULD BE ARRIVING. GUEST REQUESTED COFFEE AND PT REQUESTED COCOA, THIS WAS GIVEN.
--- NOTE | 2017-05-02 07:31 | NUR ---
PT HAD UNEVENTFUL NIGHT. SLEPT MAJORITY OF SHIFT. PAIN WELL CONTROLLED WITH TYLENOL III, WHICH WAS GIVEN 1 TIME AT THE END OF SHIFT. SLIGHTLY CONFUSED AT TIMES, BUT RE-ORIENTS EASILY. RIGHT ARM ELEVATED ON PILLOW WITH ICE PACKS. SLING IN PLACE. DRESSING IS INTACT. PT USES CALL LIGHT APPROPRIATLY. PLEASENT DEMEANOR.
--- NOTE | 2017-05-02 07:45 | NUR ---
PATIENT SITTING UP IN CHAIR. HANDS AND FACE WASHED. CALL BUTTON IN REACH. FRESH ICE WATER GIVEN. ROOM PICKED UP. FRIEND IN ROOM. NO OTHER NEEDS AT THIS TIME.
--- NOTE | 2017-05-02 08:30 | NUR ---
PATIENT SITTING UP IN CHAIR WITH FRIEND IN ROOM. RN IN TO GIVE MEDS.
--- NOTE | 2017-05-02 09:21 | NUR ---
patient sitting up in chair. fresh ice water given. friend in room. call button in reach. oral care and linen changed done. no other needs at this time.=
--- NOTE | 2017-05-02 09:23 | NUR ---
PT UP TO BATHROOM ONE PERSON STAND BY ASSIST. PT HAS STEADY GAIT
--- NOTE | 2017-05-02 11:00 | NUR ---
LOKI WITH P.T. REPORTS PT HAS NOSE BLEED. RN TO ASSESS. NOTIFIES MD. NASAL SPRAY ORDERED. SUSPECT NASALS ARE DRY FROM OXYGEN.
--- NOTE | 2017-05-02 11:54 | NUR ---
PT WAS SITTING IN CHAIR, ARM IN SLING WITH ICE BAG. SHE WAS FRIENDLY, ALERT AND MOSTLY ORIENTED. HER DAUGHTER IN LAW WAS IN SUPPORT. PT SHARED WITH ME HOW HER ACCIDENT HAPPENED, AND SHE IS NEVER GOING TO A PUMPKIN PATCH AGAIN. PT AND FAMILY EXPRESSED A LITTLE FRUSTRATION AT NOT KNOWING WHAT THE PLAN OF CARE IS. PT IS WAITING ON [facility] TO CONTACT Marianela WRIGHT. I TOLD THEM I WOULD LOOK AND SEE IF I COULD LOOK INTO THE SITUATION AND GET SOME INFO FOR THEM. PT REQUESTED PRAYER. WILL FOLLOW NEEDED
--- NOTE | 2017-05-02 13:01 | NUR ---
INTO SEE PT AND ASSESS PT SWELLING OF RIGHT ARM AND BLEEDING NOSE. NO ACTIVE BLEED NOTED AT THIS TIME.. ORDER TO PLACE NASAL PACKING AT THIS TIME FOR 24 HOURS TO MAKE SURE NOSE BLEED DOES NOT CONTINUE
--- NOTE | 2017-05-02 13:10 | NUR ---
UNWRAPPED RIGHT ARM TO ASSESS PT EDEMA, MD RE-WRAPPED AND PLACED BACK IN SLING. MD NOTED NO SIGNS OF INFECTION. MD REPORTED THAT IT IS EXPECTED THAT SWELLING AND EDEMA WILL BE PRESENT THE ARM IS STATIONARY AND IMMOBILIZED AT THIS TIME. PT ADMINISTERED ONE TAB TYLENOL 3 FOR PAIN 6/10 AT THIS TIME.
--- NOTE | 2017-05-02 14:00 | NUR ---
PT AND [id number] WANT A COPY OF DISCHARGE SUMMARY. RELEASE OF INFORMATION FORM SIGNED BY PT AND WITNESSED SIGN BY RN.
--- NOTE | 2017-05-02 15:07 | NUR ---
REPORT CALLED TO NAYLA LONG AT [facility]
== END 2017-05-02 14:25 | DRG 177 ==
LOC: ED 15:04 → CCU 20:56 → MS 04-28 12:30
PROVIDERS: ADMIT Internal Medicine
DX: J69.0 Pneumonitis due to inhalation of food and vomit (principal); J96.01 Acute respiratory failure with hypoxia; I26.99 Other pulmonary embolism without acute cor pulmonale; J98.11 Atelectasis; S52.601A Unspecified fracture of lower end of right ulna, initial encounter for closed fracture; S52.501A Unspecified fracture of the lower end of right radius, initial encounter for closed fracture; I10 Essential (primary) hypertension; F03.90 Unspecified dementia, unspecified severity, without behavioral disturbance, psychotic disturbance, mood disturbance, and anxiety; W01.0XXA Fall on same level from slipping, tripping and stumbling without subsequent striking against object, initial encounter
CPT/HCPCS: 36415; 36600; 71260; 80053; 80069; 82803; 83605; 83735; 83880; 84100; 84484; 85025; 85379; 85610; 87040; 87070; 87205; 94660; 94668; 94760; 94762; 97110; 97116; 97162; 97530; J0295; J0696; J1630; J1650; J7030; J7120; Q9967